=== PATIENT | male | born 1990 | race Caucasian/White ===

== ENCOUNTER 2018-03-28 20:20 | Inpatient (IN) | payer BC ==
--- NOTE | 2018-03-28 21:56 | ED ---
Psych HPI - General Chief Complaint: Psychiatric Symptoms Stated Complaint: petitioned Time Seen by Provider: 03/28/18 20:50 Source: patient, RN notes reviewed, old records reviewed Mode of arrival: ambulatory - History of Present Illness Initial Comments: 28-year-old male presenting presenting to emergency department today with suicidal attempt. Apparently Patient was holding a gun to his head. He reports he was in an argument with his ex girlfriend in regards to custody. Police were contacted. He reports he was drinking today. Patient states that he does do with anxiety. He has been on medication and does see a counselor. Patient states that he has no homicidal ideation. He denies any auditory or visual hallucinations. A petition was completed by mother and police. - Related Data Home Medications Medication Instructions Recorded Confirmed Escitalopram [Lexapro] 15 mg PO DAILY 03/28/18 03/28/18 Ibuprofen [Motrin Ib] 600 mg PO Q6H PRN 03/28/18 03/28/18 busPIRone HCl [Buspar] 10 mg PO TID 03/28/18 03/28/18 Allergies Allergy/AdvReac Type Severity Reaction Status Date / Time No Known Allergies Allergy Verified 03/28/18 23:33 Review of Systems ROS Statement: Those systems with pertinent positive or pertinent negative responses have been documented in the HPI. ROS Other: All systems not noted in ROS Statement are negative. Past Medical History Past Medical History: No Reported History History of Any Multi-Drug Resistant Organisms: None Reported Past Surgical History: Tonsillectomy Additional Past Surgical History / Comment(s): eustachian tubes. Past Psychological History: Anxiety, Depression Smoking Status: Current every day smoker Past Alcohol Use History: Occasional Past Drug Use History: None Reported General Exam - General Exam Comments Initial Comments: Intoxicated 28-year-old male. No acute distress. Limitations: no limitations General appearance: alert, in no apparent distress Head exam: Present: atraumatic, normocephalic, normal inspection Eye exam: Present: normal appearance, PERRL, EOMI. Absent: scleral icterus, conjunctival injection, periorbital swelling ENT exam: Present: normal exam, mucous membranes moist Neck exam: Present: normal inspection. Absent: tenderness, meningismus, lymphadenopathy Respiratory exam: Present: normal lung sounds bilaterally. Absent: respiratory distress, wheezes, rales, rhonchi, stridor Cardiovascular Exam: Present: regular rate, normal rhythm, normal heart sounds. Absent: systolic murmur, diastolic murmur, rubs, gallop, clicks GI/Abdominal exam: Present: soft, normal bowel sounds. Absent: distended, tenderness, guarding, rebound, rigid Extremities exam: Present: normal inspection, full ROM, normal capillary refill. Absent: tenderness, pedal edema, joint swelling, calf tenderness Back exam: Present: normal inspection Neurological exam: Present: alert, oriented X3, CN II-XII intact Psychiatric exam: Present: normal mood, depressed, suicidal ideation (Patient attempted to hold a gun to his head. Police were contacted. Patient he states that he did not have a suicidal intent. He is intoxicated.). Absent: normal affect Course Vital Signs 03/28/18 03/28/18 03/28/18 20:35 22:24 23:00 Temperature 97.9 F Pulse Rate 76 61 Respiratory 16 19 18 Rate Blood Pressure 166/101 O2 Sat by Pulse 98 Oximetry 03/29/18 00:01 Temperature Pulse Rate Respiratory 17 Rate Blood Pressure O2 Sat by Pulse Oximetry Medical Decision Making - Medical Decision Making 28-year-old male presents raise department today with a history of suicide attempt. Apparently Patient was leaning into his head. In an argument with his girlfriend regards to custody. Patient was intoxicated on arrival. Sober 2 hours and then clear for EPS. EPS evaluated the Patient Patient agrees for inpatient treatment and admission. Patient will be admitted at this time and signs and on his own accord. - Lab Data Lab Results 03/28/18 Range/Units 21:35 Urine Opiates Screen Not Detected (NotDetected) Ur Oxycodone Screen Not Detected (NotDetected) Urine Methadone Screen Not Detected (NotDetected) Ur Propoxyphene Screen Not Detected (NotDetected) Ur Barbiturates Screen Not Detected (NotDetected) U Tricyclic Antidepress Not Detected (NotDetected) Ur Phencyclidine Scrn Not Detected (NotDetected) Ur Amphetamines Screen Not Detected (NotDetected) U Methamphetamines Scrn Not Detected (NotDetected) U Benzodiazepines Scrn Not Detected (NotDetected) Urine Cocaine Screen Detected H (NotDetected) U Marijuana (THC) Screen Detected H (NotDetected) Disposition Clinical Impression: Depression Disposition: TRANSFER TO PSYCH HOSP/UNIT Condition: Stable Is patient prescribed a controlled substance at d/c from ED?: No Referrals: None,Stated [Primary Care Provider] - 1-2 days Time of Disposition: 00:39
[2018-03-28 22:13] LABS: Cocaine Screen,Urine Detected (NotDetected); Phencyclidine Screen,Urine Not Detected (NotDetected); Urn Cannabinoid Scrn Detected (NotDetected)
[2018-03-28 22:14] LABS: Amphetamine Screen,Urine Not Detected (NotDetected); Barbiturate Screen,Urine Not Detected (NotDetected); Benzodiazepines Screen,Urine Not Detected (NotDetected); Methadone Screen, Urine Not Detected (NotDetected); Opiate Screen,Urine Not Detected (NotDetected); Oxycodone Screen, Urine Not Detected (NotDetected); Tricyclic Antidepressant,Urine Not Detected (NotDetected)
[2018-03-29] MEDS ORDERED: MAGNESIUM HYDROXIDE 2,400 MG/10 ML CUP PO PRN (01:36)
[2018-03-29] MEDS ORDERED: ACETAMINOPHEN TAB 325 MG TAB PO PRN (01:36)
[2018-03-29] MEDS ORDERED: MAG HYDROX/AL HYDROX/SIMETH 30 ML CUP PO PRN (01:36)
[2018-03-29] MEDS: NICOTINE 14MG/24HR PATCH TRANSDERM SCH (09:57)
--- NOTE | 2018-03-29 10:59 | P.HP ---
Psychiatric H&P - . H&P Date: 03/29/18 History & Physical: Allergies Allergy/AdvReac Type Severity Reaction Status Date / Time No Known Allergies Allergy Verified 03/29/18 01:43 Vital Signs Temp 98.1 F 03/29/18 02:49 Pulse 75 03/29/18 02:49 Resp 15 03/29/18 02:49 BP 136/79 03/29/18 02:49 Pulse Ox 99 03/29/18 02:15 Intake & Output 03/28/18 03/29/18 03/29/18 18:59 06:59 18:59 Weight 99.79 kg Laboratory Last Values Urine Opiates Screen Not Detected (NotDetected) 03/28/18 21:35 Ur Oxycodone Screen Not Detected (NotDetected) 03/28/18 21:35 Urine Methadone Screen Not Detected (NotDetected) 03/28/18 21:35 Ur Propoxyphene Screen Not Detected (NotDetected) 03/28/18 21:35 Ur Barbiturates Screen Not Detected (NotDetected) 03/28/18 21:35 U Tricyclic Antidepress Not Detected (NotDetected) 03/28/18 21:35 Ur Phencyclidine Scrn Not Detected (NotDetected) 03/28/18 21:35 Ur Amphetamines Screen Not Detected (NotDetected) 03/28/18 21:35 U Methamphetamines Scrn Not Detected (NotDetected) 03/28/18 21:35 U Benzodiazepines Scrn Not Detected (NotDetected) 03/28/18 21:35 Urine Cocaine Screen Detected (NotDetected) H 03/28/18 21:35 U Marijuana (THC) Screen Detected (NotDetected) H 03/28/18 21:35 03/29/18 10:50 Chief Complaint : Suicidal ideation HPI : Mr. Toribio Perla is 28 yo single male with h/o depression and anxiety admitted here secondary to suicidal ideation with a plan to shoot himself with a gun. Reportedly he broke up with his girl friend a month ago and he has 2 year old son from this relationship. He had argument with her over child issue and he pulled pistol and threatened to shoot himself. He now denies any suicidal ideation. He has been treated with Lexapro and buspar for his depression and anxiety. He denies any symptoms of mood swings, psychoses or OCD. PPH : Depression PMH : None Allergies : NKDA Substance Abuse : Marijuana here and there Personal: Lives by himself and work in [employer] field. Has 2 year son from ex- girl friend. MSE : Alert, awake, oriented in all spheres. Poor eye contact. Speech slow in soft tone, Mood dysphoric with congruent affect. Now denies any suicidal ideation. No symptoms of psychoses. Insight and Judgment poor. A/P : Major Depressive Disorder, Recurrent without psychotic features Will resume and adjust medications accordingly.
[2018-03-29] MEDS: busPIRone HCl 10 MG TAB PO SCH ×3 (11:30→20:42)
[2018-03-29] MEDS: VENLAFAXINE HCL ER 75 MG CAP PO SCH (11:31)
[2018-03-29 12:56] LABS: Basophils % (A) 0 %; Eosinophils # (A) 0.1 k/uL (0-0.7); Eosinophils % (A) 1 %; HCT 49.9 % (39.0-53.0); HGB 17.1 gm/dL (13.0-17.5); Lymphocytes # (A) 1.9 k/uL (1.0-4.8); Lymphocytes % (A) 17 %; MCHC 34.3 g/dL (31.0-37.0); MCV 96.1 fL (80.0-100.0); Mean Platelet Volume 6.9; Monocytes # (A) 0.7 k/uL (0-1.0); Monocytes % (A) 6 %; Neutrophils # (A) 8.1 k/uL (1.3-7.7); Neutrophils % (A) 73 %; Platelet Count 253 k/uL (150-450); RBC 5.19 m/uL (4.30-5.90); RDW 13.2 % (11.5-15.5)
[2018-03-29 13:05] LABS: ALT 32 U/L (21-72); AST 45 U/L (17-59); Albumin 4.8 g/dL (3.5-5.0); Alkaline Phosphatase 90 U/L (38-126); Anion Gap 12 mmol/L; Blood Urea Nitrogen 8 mg/dL (9-20); Carbon Dioxide 21 mmol/L (22-30); Chloride 106 mmol/L (98-107); Cholesterol 223 mg/dL (<200); Glucose 87 mg/dL (74-99); HDL Cholesterol 47 mg/dL (40-60); LDL Cholesterol,Calculated 132 mg/dL (0-99); Potassium 4.8 mmol/L (3.5-5.1); Sodium 139 mmol/L (137-145); Total Bilirubin 0.9 mg/dL (0.2-1.3); Total Protein 8.4 g/dL (6.3-8.2); Triglycerides 219 mg/dL (<150)
--- NOTE | 2018-03-29 13:06 | P.HPIM ---
History of Present Illness H&P Date: 03/29/18 Chief Complaint: Severe depression with suicidal thoughts This is a 28-year-old male with a past medical history noted below significant for severe depression who was brought into the emergency room after he pointed a gun to his head and threatened to kill himself. Patient was petitioned by family and police. He is currently admitted to the psych unit. I was asked to see him for medical management. Patient does not have any concerns. He said that he is feeling better. He told me that he wouldn't actually in his life. Review of Systems Review of system: 14 points review of systems were obtained and were negative except to what were mentioned in the HPI. Past Medical History Past Medical History: No Reported History History of Any Multi-Drug Resistant Organisms: None Reported Past Surgical History: Tonsillectomy Additional Past Surgical History / Comment(s): eustachian tubes. Smoking Status: Current every day smoker Medications and Allergies Home Medications Medication Instructions Recorded Confirmed Type Escitalopram [Lexapro] 15 mg PO DAILY 03/28/18 03/29/18 History Ibuprofen [Motrin Ib] 600 mg PO Q6H PRN 03/28/18 03/29/18 History busPIRone HCl [Buspar] 10 mg PO TID 03/28/18 03/29/18 History Allergies Allergy/AdvReac Type Severity Reaction Status Date / Time No Known Allergies Allergy Verified 03/29/18 01:43 Physical Exam Vitals: Vital Signs Temp Pulse Pulse Resp BP BP Pulse Ox 03/29/18 02:49 98.1 F 75 15 136/79 03/29/18 02:15 97.8 F 66 19 149/89 99 03/29/18 00:01 17 03/28/18 23:00 18 03/28/18 22:24 61 19 03/28/18 20:35 97.9 F 76 16 166/101 98 Intake and Output 03/28/18 03/29/18 03/29/18 22:59 06:59 14:59 Other: Weight 99.79 kg General: The patient is awake and alert, in no distress Eye: there is normal conjunctiva bilaterally. Neck: The neck is supple, there is no JVD. Cardiovascular: Normal S1-S2, no S3-S4, no murmurs. Respiratory: Lungs clear to auscultation bilaterally Gastrointestinal: Abdomen is soft, nontender Musculoskeletal: There is no pedal edema. Neurological:. Speech is normal. Skin: Skin is warm and dry Results CBC & Chem 7: 03/29/18 12:20 Labs: Abnormal Lab Results - Last 24 Hours (Table) 03/28/18 03/29/18 Range/Units 21:35 12:20 WBC 11.0 H (3.8-10.6) k/uL Neutrophils # 8.1 H (1.3-7.7) k/uL Urine Cocaine Screen Detected H (NotDetected) U Marijuana (THC) Screen Detected H (NotDetected) Thrombosis Risk Factor Assmnt - Choose All That Apply Any of the Below Risk Factors Present?: No Other congenital or acquired thrombophilia - If yes, enter type in comment: No Assessment and Plan Assessment: 1. Severe depression with suicidal thoughts: Currently admitted to the psych unit. Management per psychiatry. 2. Polysubstance abuse including marijuana and cocaine, counseled extensively to quit 3. Tobacco abuse: Counseled to quit. Nicotine patch ordered. Today, I reviewed her medication list and lab work results. Continue current regimen. Thank you very much for the consultation. I will continue to follow up on the patient on as-needed basis
[2018-03-29 18:06] LABS: Hemoglobin A1C 5.2 % (4.0-6.0)
[2018-03-29] MEDS: LORazepam 1 MG TAB PO PRN (22:09)
[2018-03-30] MEDS: busPIRone HCl 10 MG TAB PO SCH ×3 (08:42→20:04)
[2018-03-30] MEDS: VENLAFAXINE HCL ER 75 MG CAP PO SCH (08:42)
[2018-03-30] MEDS: NICOTINE 14MG/24HR PATCH TRANSDERM SCH (08:42)
--- NOTE | 2018-03-30 18:44 | P.PN ---
Progress Note - Text Progress Note Date: 03/30/18 Found him some what better. His mood has started improving though still feeling depressed and anxious. Going to some groups. MSE : Alert, awake, oriented in all spheres. Poor eye contact. Speech slow in soft tone, Mood dysphoric with congruent affect. Now denies any suicidal ideation. No symptoms of psychoses. Insight and Judgment poor. A/P : Major Depressive Disorder, Recurrent without psychotic features Will adjust medications accordingly.
[2018-03-30] MEDS: LORazepam 1 MG TAB PO PRN (22:07)
[2018-03-31] MEDS: NICOTINE 14MG/24HR PATCH TRANSDERM SCH (08:48)
[2018-03-31] MEDS: busPIRone HCl 10 MG TAB PO SCH (08:48)
[2018-03-31] MEDS: VENLAFAXINE HCL ER 75 MG CAP PO SCH (08:48)
[2018-03-31 09:08] VITALS: RESP 20; TEMP 98
--- NOTE | 2018-03-31 12:21 | P.PN ---
Subjective Progress Note Date: 03/31/18 Principal diagnosis: Major depressive disorder with anxiety exacerbated by alcohol use and cocaine use I had an argument with my girlfriend and told her may be it would would be better that I was not here and she knew that I had a gun in the car. Please were called and my mother was called and my mother came and got the gun car and took at home with her. He was under the influence of alcohol and cocaine was hurt by comments that his ex-girlfriend was making. Very impulsive, adolescent like response and became a harm to himself. Today he denies suicidal or homicidal ideation however he still is anxious and depressed and overwhelmed when he did. Objective - Vital Signs Vital signs: Vital Signs Temp 98.0 F 03/31/18 09:00 Pulse 89 03/31/18 09:00 Resp 20 03/31/18 09:00 BP 141/95 03/31/18 09:00 Pulse Ox 97 03/31/18 09:00 Intake & Output 03/30/18 03/31/18 03/31/18 18:59 06:59 18:59 Weight 94.6 kg - Labs CBC & Chem 7: 03/29/18 12:20 03/29/18 12:20 Assessment and Plan Assessment: 28-year-old male presenting presenting to emergency department today with suicidal attempt. Apparently Patient was holding a gun to his head. He reports he was in an argument with his ex girlfriend in regards to custody. Police were contacted. He reports he was drinking today. Patient states that he does do with anxiety. He has been on medication and does see a counselor. Patient states that he has no homicidal ideation. He denies any auditory or visual hallucinations. A petition was completed by mother and police. - Related Data Home Medications Medication Instructions Recorded Confirmed Escitalopram [Lexapro] 15 mg PO DAILY 03/28/18 03/28/18 Ibuprofen [Motrin Ib] 600 mg PO Q6H PRN 03/28/18 03/28/18 busPIRone HCl [Buspar] 10 mg PO TID 03/28/18 03/28/18 Allergies Allergy/AdvReac Type Severity Reaction Status Date / Time No Known Allergies Allergy Verified 03/28/18 23:33 Past Medical History Past Medical History: No Reported History History of Any Multi-Drug Resistant Organisms: None Reported Past Surgical History: Tonsillectomy Additional Past Surgical History / Comment(s): eustachian tubes. Past Psychological History: Anxiety, Depression Smoking Status: Current every day smoker Past Alcohol Use History: Occasional Past Drug Use History: None Reported (1) Anxiety and depression Current Visit: Yes Status: Acute Code(s): F41.9 - ANXIETY DISORDER, UNSPECIFIED; F32.9 - MAJOR DEPRESSIVE DISORDER, SINGLE EPISODE, UNSPECIFIED SNOMED Code(s): 34638703 (2) Cocaine abuse in remission Current Visit: Yes Status: Acute Code(s): F14.11 - COCAINE ABUSE, IN REMISSION SNOMED Code(s): 828573143 (3) Alcohol abuse with alcohol-induced mood disorder Current Visit: Yes Status: Acute Code(s): F10.14 - ALCOHOL ABUSE WITH ALCOHOL-INDUCED MOOD DISORDER SNOMED Code(s): 14858077 (4) Depression Current Visit: Yes Status: Acute Code(s): F32.9 - MAJOR DEPRESSIVE DISORDER , SINGLE EPISODE, UNSPECIFIED SNOMED Code(s): 69929892 Plan: Increase venlafaxine 150 mg by mouth daily at bedtime, discontinue BuSpar, and clonidine 0.1 mg 3 times a day for anxiety and mild hypertension. Time with Patient: Greater than 30
[2018-03-31] MEDS: cloNIDine HCL 0.1 MG TAB PO SCH ×2 (15:23→21:05)
[2018-03-31] MEDS ORDERED: VENLAFAXINE HCL ER 150 MG CAP PO SCH (21:00)
[2018-03-31] MEDS: LORazepam 1 MG TAB PO PRN (23:26)
[2018-03-31 23:28] VITALS: BP 135/83; PULSE 71
[2018-04-01] MEDS: cloNIDine HCL 0.1 MG TAB PO SCH (08:28)
[2018-04-01] MEDS ORDERED: NICOTINE 21MG/24HR PATCH TRANSDERM SCH (09:00)
--- NOTE | 2018-04-01 12:13 | P.DS ---
Providers Date of admission: 03/29/18 01:30 Expected date of discharge: 04/01/18 Attending physician: Donavan Harmon DO Consults: 03/29/18 01:36 Consult Physician Routine Consulting Provider: Colette Roldan Consult Reason/Comments: medical management Do you want consulting provider notified?: Already Contacted Primary care physician: Stated None - Discharge Diagnosis(es) (1) Anxiety and depression This is a 28-year-old male with a past medical history noted below significant for severe depression who was brought into the emergency room after he pointed a gun to his head and threatened to kill himself. Patient was petitioned by family and police. He is currently admitted to the psych unit. I was asked to see him for medical management. Patient does not have any concerns. He said that he is feeling better. He told me that he wouldn't actually in his life. I had an argument with my girlfriend and told her may be it would would be better that I was not here and she knew that I had a gun in the car. Please were called and my mother was called and my mother came and got the gun car and took at home with her. He was under the influence of alcohol and cocaine was hurt by comments that his ex-girlfriend was making. Very impulsive, adolescent like response and became a harm to himself. Today he denies suicidal or homicidal ideation however he still is anxious and depressed and overwhelmed when he did. Past Medical History Past Medical History: No Reported History History of Any Multi-Drug Resistant Organisms: None Reported Past Surgical History: Tonsillectomy Additional Past Surgical History / Comment(s): eustachian tubes. Smoking Status: Current every day smoker Medications and Allergies Home Medications Medication Instructions Recorded Confirmed Type Escitalopram [Lexapro] 15 mg PO DAILY 03/28/18 03/29/18 History Ibuprofen [Motrin Ib] 600 mg PO Q6H PRN 03/28/18 03/29/18 History busPIRone HCl [Buspar] 10 mg PO TID 03/28/18 03/29/18 History Allergies Allergy/AdvReac Type Severity Reaction Status Date / Time No Known Allergies Allergy Verified 03/29/18 01:43 Current Visit: Yes Status: Acute Priority: Low (2) Cocaine abuse in remission Current Visit: Yes Status: Acute Priority: Low (3) Alcohol abuse with alcohol-induced mood disorder Current Visit: Yes Status: Acute Priority: Low (4) Depression Current Visit: Yes Status: Acute Priority: Low Hospital Course: This 28-year-old single male was admitted for suicidal ideation after an argument with his ex-girlfriend and came to the hospital voluntarily. He was put on 15 minute checks, usual protocol for [facility] therapeutic environment, groups, social work evaluation, psychiatric and medical evaluation and was started on psychotropic medications. He was titrated on his venlafaxine to 150 mg XR by mouth daily at bedtime, discontinued BuSpar and started on clonidine 0.1 mg 3 times a day for anxiety and hypertension. He tolerated these medications quite well and is resolved with symptoms of depression and anxiety were alleviated. The medications were sent to [facility]. The patient presents alert, pleasant, and cooperative. There calmly seated without any agitated behavior. He reports that [his] mood is good. Affect is congruent and euthymic. [He] deny having any suicidal or homicidal ideation intent or plan. [He] denies any auditory or visual hallucinations. There is no evidence of any delusional thought content. [His] thought process is linear and goal-directed. [His] speech is fluent and nonpressured. [His] memory and concentration is grossly intact for the purposes of this session. Patient Condition at Discharge: Stable Plan - Discharge Summary Discharge Rx Participant: Yes New Discharge Prescriptions: New cloNIDine HCL [Catapres] 0.1 mg PO TID 30 Days #90 tab Venlafaxine HCl ER [Effexor XR] 150 mg PO 2100 30 Days #30 cap.er.24h Discontinued busPIRone HCl [Buspar] 10 mg PO TID Escitalopram [Lexapro] 15 mg PO DAILY Ibuprofen [Motrin Ib] 600 mg PO Q6H PRN PRN Reason: Pain Discharge Medication List Venlafaxine HCl ER [Effexor XR] 150 mg PO 2100 30 Days #30 cap.er.24h 04/01/18 [ Rx] cloNIDine HCL [Catapres] 0.1 mg PO TID 30 Days #90 tab 04/01/18 [Rx] Follow up Appointment(s)/Referral(s): None,Stated [Primary Care Provider] - 1-2 days Discharge Disposition: HOME SELF-CARE
== END 2018-04-01 14:37 | disposition home or self-care (01) | DRG 885 ==
LOC: EC 20:20 → 3MHU 03-29 01:30
PROVIDERS: ADMIT Psychiatry & Neurology Psychiatry; ATTEND Psychiatry & Neurology Psychiatry
DX: F33.9 Major depressive disorder, recurrent, unspecified (principal); R45.851 Suicidal ideations; F10.94 Alcohol use, unspecified with alcohol-induced mood disorder; F41.9 Anxiety disorder, unspecified; I10 Essential (primary) hypertension; F14.11 Cocaine abuse, in remission; F12.10 Cannabis abuse, uncomplicated; F17.210 Nicotine dependence, cigarettes, uncomplicated; Z71.6 Tobacco abuse counseling; Z79.899 Other long term (current) drug therapy; Z91.5 Personal history of self-harm; Z71.51 Drug abuse counseling and surveillance of drug abuser
CPT/HCPCS: 80053; 80061; 80306; 82075; 83036; 84443; 85025; 99285